=== PATIENT | female | born 2000 | race Two or more races ===

== ENCOUNTER 2022-05-29 07:47 | Emergency (ER) | payer BC ==
[2022-05-29] MEDS ORDERED: diphenhydrAMINE 50 MG Cap PO ONE (08:57)
[2022-05-29] MEDS ORDERED: TERBINAFINE 1% TOP SCH (09:15)
== END 2022-05-29 11:10 | disposition home or self-care (01) ==
LOC: MW.ED 07:47
DX: R21 Rash and other nonspecific skin eruption (principal)
CPT/HCPCS: 81001; 82947; 87086; 87480; 87510; 87660; 99283; A9270